=== PATIENT | female | born 1960 | race Caucasian/White ===

== ENCOUNTER 2023-05-31 22:10 | Emergency (ER) | payer BC, SELFPAY ==
--- NOTE | ~2023-05-31 | XR_ITS ---
EXAMINATION: XR chest 2V DATE: 05/31/2023 22:47 INDICATION: Shortness of breath. TECHNIQUE: Frontal and lateral views of the chest were obtained. COMPARISON: Chest CT 06/01/2023 FINDINGS: There is mild atelectasis in the lower lung zones. No pleural effusion or pneumothorax. The heart size is normal. IMPRESSION: 1. Mild atelectasis in the lower lung zones. Reviewed, dictated and finalized at location A. SIGNALMAN
--- NOTE | ~2023-05-31 | CT_ITS ---
EXAMINATION: CTA chest PE protocol DATE: 06/01/2023 01:51 INDICATION: Shortness of breath. Dysphagia. TECHNIQUE: Computed tomography angiography (CTA) of the chest was performed with 100 mL Omnipaque-350 intravenous contrast timed to evaluate the pulmonary arteries. Coronal maximum intensity projection 3D-reconstructions were created by the technologist. Automated exposure control and iterative reconst ruction technique were employed. The dose-length product was 214.13 mGy-cm. COMPARISON: None. FINDINGS: There is mild dependent atelectasis. No pleural effusion. The heart size is normal. No dasha cardial effusion. There is no pulmonary embolus. There is a 9 mm mass in left kidney measuring soft t issue attenuation. There is mild thoracic spondylosis. IMPRESSION: 1. No pulmonary embolus. 2. 9 mm left kidney mass, which may be a hemorrhagic cyst or less likely a neoplasm. Abdomen CT or MR I without and with contrast is recommended. Reviewed, dictated and finalized at location A. T FOLDER IMPRESSION: 1. No pulmonary embolus. 2. 9 mm left kidney mass, which may be a hemorrhagic cyst or less likely a neop lasm. Abdomen CT or MRI without and with contrast is recommended.
[2023-05-31 22:12] VITALS: BP 151/110; PULSE 98; RESP 22; TEMP 36.1; O2SAT 100
--- NOTE | 2023-05-31 22:31 | PC.NURSE ---
patient uncooperative for EKG and labs.
[2023-06-01 00:42] VITALS: BP 147/78; PULSE 96; RESP 26; O2SAT 98
--- NOTE | 2023-06-01 00:46 | ECG_ITS ---
Measurements Intervals [place] Rate: 88 P: 40 PA: 136 QRS: 23 QRSD: 78 T: 59 QT: 360 QTc: 438 Interpretive Statements SINUS RHYTHM NO PREVIOUS ECG AVAILABLE FOR COMPARISON Electronically Signed On 06-01-2023 14:49:52 HOME SERVICE DIRECTOR by Juliette Ricks M.D.
[2023-06-01 01:25] LABS: Basophils Absolute Auto 0.1 K/mm3 (0.0-0.1); Basophils Percent Auto 0.8 % (0.2-1.2); Eosinophils Absolute Auto 0.3 K/mm3 (0-0.3); Hematocrit 41.6 % (37.0-47.0); Hemoglobin 13.6 g/dL (12.0-15.0); Immature Granulocyte Absolute 0.04 K/mm3 (0.00-0.031); Immature Granulocyte Percent A 0.6 % (0-0.5); Lymphocytes Absolute Auto 2.42 K/mm3 (0.9-3.2); Lymphocytes Percent Auto 37.6 % (18.3-44.2); Mean Corpuscular HGB Conc 32.7 g/dl (32-36); Mean Corpuscular Hemoglobin 29.1 pg (26-34); Mean Corpuscular Volume 88.9 fl (80-100); Mean Platelet Volume 8.7 fl (7.4-10.4); Monocytes Absolute Auto 0.5 K/mm3 (0.1-0.6); Neutrophils Absolute Auto 3.2 K/mm3 (1.3-6.7); Platelet Count Result 269 k/mm3 (150-375); Red Blood Count 4.68 M/mm3 (4.2-5.4); Red Cell Distribution Width 12.6 % (11.5-14.5); White Blood Count 6.4 K/mm3 (4.5-10.0)
[2023-06-01 01:27] LABS: Alanine Aminotransferase 39 U/L (6-35); Albumin Level 4.5 g/dL (3.5-5.1); Alkaline Phosphatase 104 U/L (38-126); Anion Gap 15 mmol/L (8-16); Aspartate Amino Transferase 32 U/L (14-36); Bilirubin,Total 0.5 mg/dL (0.2-1.3); Blood Urea Nitrogen 13 mg/dL (7-17); Calcium 9.2 mg/dL (8.4-10.2); Carbon Dioxide 19 mmol/L (22-30); Chloride 103 mmol/L (98-107); Estimated Glomerular Filt Rate > 60; Glucose 123 mg/dL (65-110); Potassium 3.5 mmol/L (3.4-5.0); Sodium 137 mmol/L (137-145)
[2023-06-01 01:33] LABS: Lactic Acid Reflex 2.8 mmol/L (0.7-2.0)
[2023-06-01 01:36] LABS: INR 0.9; Prothrombin Time 12.8 Seconds (11.1-14.7)
[2023-06-01 01:37] LABS: Partial Thromboplastin Time 25.6 SECONDS (22.3-36.8)
[2023-06-01 01:49] LABS: NT Pro B Type Natriuretic Pept 82 pg/mL (19.9-100); Troponin I < 0.012 ng/mL (0.000-0.034)
[2023-06-01 01:50] LABS: Procalcitonin 0.1 ng/mL
[2023-06-01 01:55] LABS: Magnesium 2.1 mg/dL (1.6-2.3)
[2023-06-01 02:31] VITALS: BP 132/82; PULSE 79; RESP 15; O2SAT 94
[2023-06-01 03:42] LABS: Bacteria Urine None Seen /hpf; Need Manual Microscopic Reviewed; Non Pathogenic Casts 0-2; RBC Urine 0-2 /hpf (0-2); Squamous Epithelial Cell Urine None seen /hpf (Few); WBC Urine 0-5 /hpf
[2023-06-01 03:44] LABS: Appearance Urine Clear (Clear); Color Urine Yellow (Yellow)
[2023-06-01 03:45] LABS: Bilirubin Urine Negative (Negative); Blood Urine Trace-Intact (Negative); Glucose Urine UA Negative (Negative); Ketones Urine Negative (Negative); Leukocyte Esterase Ur Negative LEU/UL (Negative); Nitrate Urine Negative (Negative); Protein Urine Negative (Negative); Specific Grav Ur 1.005 (1.001-1.035); Urobilinogen Urine 0.2 mg/dL (<2.0)
[2023-06-01 03:46] LABS: Add Urine Microscopic? YES
[2023-06-01 04:10] VITALS: BP 136/72; PULSE 85; RESP 23; O2SAT 97
[2023-06-01 04:22] LABS: Reflex Lactic Acid Yes or No Add Lactic
[2023-06-01 04:51] LABS: Troponin I < 0.012 ng/mL (0.000-0.034)
[2023-06-01 05:15] LABS: Lactic Acid 2.6 mmol/L (0.7-2.0)
[2023-06-01 06:30] VITALS: BP 152/90; PULSE 78; RESP 15; O2SAT 98
--- NOTE | 2023-06-01 06:51 | ED.GENADULT ---
HPI - General Adult General Chief complaint: Shortness of Breath/Dyspnea Stated complaint: SOB, shaky Time Seen by Provider: 06/01/23 00:57 History of Present Illness HPI narrative: Patient is 62-year-old female who presents emergency department with chief complaint of shortness of breath and shakiness. Patient reports that she has had feeling as though something is stuck in her throat and reports that she has had some shortness of breath and feeling very anxious. The patient reports that she has had problems before with her esophagus the patient denies fever reports that she has not vomited Related Data Allergies Allergy/AdvReac Type Severity Reaction Status Date / Time No Known Allergies Allergy Verified 06/01/23 00:43 Review of Systems Review of Systems: A 10 system review of systems was completed on the patient and is negative except for what is stated in the HPI. Nursing and ancillary documentation was reviewed. Exam Narrative: GENERAL: Well-appearing, well-nourished, and in no acute distress. HEAD: Normocephalic, atraumatic. EYES: PERRLA and EOMI. ENT: Nares clear, no rhinorrhea or epistaxis. Mucous membranes moist. NECK: Supple. CHEST: Clear to auscultation. No respiratory distress. HEART: Regular rate and rhythm. No murmur heard. Normal peripheral pulses. ABDOMEN: Soft, nontender, nondistended, normal active bowel sounds. EXTREMITIES: Normal range of motion. No edema. SKIN: Warm, dry, no rash. NEURO: No focal deficits. Alert and oriented x3. PSYCH: Anxious mood and normal affect. Course Vital Signs Vital signs: Vital Signs Temperature 36.1 C L 05/31/23 22:12 Pulse Rate 98 05/31/23 22:12 Respiratory Rate 22 H 05/31/23 22:12 Blood Pressure 151/110 H 05/31/23 22:12 Pulse Oximetry 100 05/31/23 22:12 Oxygen Delivery Room Air 05/31/23 22:12 Temperature 36.3 C L 06/01/23 07:15 Pulse Rate 85 06/01/23 07:15 Respiratory Rate 30 H 06/01/23 07:15 Blood Pressure 145/84 H 06/01/23 07:15 Pulse Oximetry 99 06/01/23 07:15 Oxygen Delivery Room Air 06/01/23 00:40 Medical Decision Making Vital Signs Vital Signs: Vital Signs Temperature 36.1 C L 05/31/23 22:12 Pulse Rate 98 05/31/23 22:12 Respiratory Rate 22 H 05/31/23 22:12 Blood Pressure 151/110 H 05/31/23 22:12 Pulse Oximetry 100 05/31/23 22:12 Oxygen Delivery Room Air 05/31/23 22:12 Temperature 36.3 C L 06/01/23 07:15 Pulse Rate 85 06/01/23 07:15 Respiratory Rate 30 H 06/01/23 07:15 Blood Pressure 145/84 H 06/01/23 07:15 Pulse Oximetry 99 06/01/23 07:15 Oxygen Delivery Room Air 06/01/23 00:40 Lab Data 06/01/23 01:03 06/01/23 01:03 Labs: Lab Results 06/01/23 06/01/23 06/01/23 Range/Units 01:03 01:15 01:16 WBC 6.4 (4.5-10.0) K/mm3 RBC 4.68 (4.2-5.4) M/mm3 Hgb 13.6 (12.0-15.0) g/dL Hct 41.6 (37.0-47.0) % MCV 88.9 (80-100) fl MCH 29.1 (26-34) pg MCHC 32.7 (32-36) g/dl RDW 12.6 (11.5-14.5) % Plt Count 269 (150-375) k/mm3 MPV 8.7 (7.4-10.4) fl Immature Gran % (Auto) 0.6 H (0-0.5) % Neut % (Auto) 50.0 (45.5-73.1) % Lymph % (Auto) 37.6 (18.3-44.2) % [place] % (Auto) 7.0 (2.6-8.5) % Eos % (Auto) 4.0 (0-4.4) % Baso % (Auto) 0.8 (0.2-1.2) % Lymph # (Auto) 2.42 (0.9-3.2) K/mm3 [place] # (Auto) 0.5 (0.1-0.6) K/mm3 Eos # (Auto) 0.3 (0-0.3) K/mm3 Baso # (Auto) 0.1 (0.0-0.1) K/mm3 Abs Immat Gran (auto) 0.04 H (0.00-0.031) K/mm3 Absolute Neuts (auto) 3.2 (1.3-6.7) K/mm3 Absolute Nucleated RBC 0.0 (0.0-0.012) K/mm3 Nucleated RBC % 0.0 (0.0-0.2) % PT 12.8 (11.1-14.7) Seconds INR 0.9 APTT 25.6 (22.3-36.8) SECONDS Sodium 137 (137-145) mmol/L Potassium 3.5 (3.4-5.0) mmol/L Chloride 103 (98-107) mmol/L Carbon Dioxide 19 L (22-30) mmol/L Anion Gap 15 (8-16) mmol/L BUN 13 (7-17) mg
[2023-06-01 07:15] VITALS: BP 145/84; PULSE 85; RESP 30; TEMP 36.3; O2SAT 99
--- NOTE | 2023-06-01 07:20 | PC.NURSE ---
Pt ambulated w/steady gait.
== END 2023-06-01 08:00 | disposition home or self-care (01) ==
PROVIDERS: Emergency Provider Emergency Medicine; PCP Family Medicine
DX: R13.10 Dysphagia, unspecified (principal); R06.00 Dyspnea, unspecified
CPT/HCPCS: 36415; 71046; 71275; 80053; 81001; 83605; 83735; 83880; 84145; 84484; 85025; 85610; 85730; 93005; 99284; Q9967